=== PATIENT | female | born 1955 | race Caucasian/White ===

== ENCOUNTER 2021-07-15 16:33 | Inpatient (IN) | payer MEDICAID ==
[~2021-07-15] VITALS: Ht 157.5 cm; Wt 78.0 kg
[2021-07-15 16:50] VITALS: BP 135/84
[2021-07-15] MEDS ORDERED: ACETAMINOPHEN EXTRA STRENGTH 500 MG TAB PO ONE (17:00)
--- NOTE | 2021-07-15 17:05 | NUR ---
66 Y/O FEMALE BIB SON FOR C/O DYSURIA, URINARY FREQUENCY. HAS N/V, DENIES DIARRHEA AND ABD X 4DAYS. EMESIS IS NON BLOOD/COFFEE LIKE IN COLOR PER PT. C/O FULLNESS AND PAIN IN THE AREA OF BLADDER. PT REPORTS EPISODES OF FEVER, CHILLS AND AMARO. DENIES CP AT THIS TIME. RESP EVEN AND UNLABORED. AOX 4, ABLE TO MAKE ALL NEEDS KNOWN . PMHX: HTN ALLERGIES: DENIES HOME MEDS: DENIES
[2021-07-15] MEDS ORDERED: ONDANSETRON 4 MG/2 ML VIAL IVP ONE (17:15)
[2021-07-15] MEDS ORDERED: NACL 0.9% 1,000 ML IV SCH (17:15)
--- NOTE | 2021-07-15 18:27 | NUR ---
BLOOD DRAWN AND HANDED TO TECH
[2021-07-15 19:13] LABS: BASOPHILS # (AUTO) 0.1 K/uL (0.00-0.22); BASOPHILS % (AUTO) 0.6 % (0.0-2.0); EOSINOPHILS % (AUTO) 0.2 % (0.0-4.0); HEMATOCRIT 37.3 % (36-48); HEMOGLOBIN 12.5 g/dL (12.0-16.0); LYMPHOCYTES # (AUTO) 1.1 K/uL (2.5-16.5); MEAN CORPUSCULAR HEMOGLOBIN 30 pg (27-31); MEAN CORPUSCULAR HGB CONC 34 g/dL (33-37); MEAN CORPUSCULAR VOLUME 90.8 fL (80-94); MONOCYTES # (AUTO) 1.6 K/uL (0.8-1.0); MONOCYTES % (AUTO) 11.9 % (1.7-9.3); NEUTROPHILS # (AUTO) 10.8 K/uL (1.8-7.7); NEUTROPHILS % (AUTO) 79.3 % (42.2-75.2); PLATELET COUNT (AUTO) 300 K/uL (140-450); RED CELL DISTRIBUTION WIDTH 13.9 % (11.6-13.7); WHITE BLOOD COUNT (AUTO) 13.6 K/uL (4.8-10.8)
[2021-07-15 19:25] LABS: ALBUMIN 3.1 g/dL (3.4-5.0); ANION GAP 14.8 (8-16); CARBON DIOXIDE 21.4 mmol/L (21-32); CREATININE 0.7 mg/dL (0.6-1.3); POTASSIUM 3.2 mmol/L (3.5-5.1); TOTAL BILIRUBIN 1.1 mg/dL (0.0-1.0)
--- NOTE | 2021-07-15 19:25 | NUR ---
Pt report given to BELINDA SAM. Transfer of care at this time.
--- NOTE | 2021-07-15 19:30 | NUR ---
RESTING IN BED WITH FAMILY AT BEDSIDE.
[2021-07-15 19:57] LABS: APPEARANCE,URINE CLOUDY (CLEAR); BILIRUBIN,URINE NEGATIVE (NEGATIVE); BLOOD, URINE 2+ (NEGATIVE); COLOR,URINE YELLOW (YELLOW); LEUKOCYTE ESTERASE ,URINE 1+ (NEGATIVE); NITRITE, URINE POSITIVE (NEGATIVE); UGLUCOSE NEGATIVE (NEGATIVE)
[2021-07-15] MEDS ORDERED: NACL 0.9% 1,000 ML IV ONE (20:30)
[2021-07-15 20:36] LABS: WBC,URINE 60-80 /HPF (0-5)
[2021-07-15] MEDS ORDERED: cefTRIAXone 1,000 MG VIAL ONE (20:40)
[2021-07-15] MEDS ORDERED: LISI-487 PO (21:44)
--- NOTE | 2021-07-15 22:30 | NUR ---
AMBULATED TO BR WITH STEADY GAIT
[2021-07-15] MEDS ORDERED: NACL 0.9% 1,500 ML IV SCH (23:50)
[2021-07-15] MEDS ORDERED: POTASSIUM CHLORIDE 10 MEQ TABER PO PRN (23:50)
[2021-07-15] MEDS ORDERED: ONDANSETRON 4 MG/2 ML VIAL IM/IVP PRN (23:50)
[2021-07-15] MEDS ORDERED: DOCUSATE SODIUM 100 MG GELCAP PO PRN (23:50)
[2021-07-15] MEDS ORDERED: guaiFENesin DM 200/20 MG-10 ML 10 ML UDC PO PRN (23:50)
[2021-07-15] MEDS ORDERED: ZOLPIDEM 5 MG TAB PO PRN (23:50)
[2021-07-15] MEDS ORDERED: HYDROcodone/APAP 7.5/325 MG 1 TAB PO PRN (23:50)
[2021-07-15] MEDS ORDERED: ACETAMINOPHEN 325 MG TAB PO PRN (23:50)
--- NOTE | 2021-07-15 23:50 | NUR ---
Pt discharged from ED at 07/15/21 @ 1845 to be admitted to tele unit under the care of MD Abreu.
[2021-07-15] MEDS ORDERED: POTASSIUM CHLORIDE 10 MEQ TABER PO SCH (23:55)
--- NOTE | 2021-07-16 00:20 | NUR ---
C/O NAUSEA. MEDICATED ORDERED
[2021-07-16 00:34] LABS: CHOL/HDL RATIO 2.6 (1-4.5); FREE T4 (FREE THYROXINE) 1.11 ng/dL (0.76-1.46); MAGNESIUM 1.9 mg/dL (1.8-2.4); PHOSPHORUS 2.6 mg/dL (2.5-4.9); THYROID STIMULATING HORMONE 0.54 uIU/mL (0.34-3.74)
[2021-07-16 00:35] LABS: PROTHROMBIN TIME 10.4 secs (10.8-13.4)
[2021-07-16] MEDS: NACL 0.9% 1,000 ML IV SCH ×3 (01:36→19:58)
[2021-07-16 01:55] LABS: BARBITURATE, URINE NEGATIVE ng/ml (NEG <=200); BENZODIAZEPINE, URINE NEGATIVE ng/mL (NEG <=200); CANNABINOID, URINE NEGATIVE ng/mL (NEG <=50); COCAINE, URINE NEGATIVE ng/mL (NEG <=300); PHENCYCLIDINE SCREEN,URINE NEGATIVE ng/mL (NEG <=25)
[2021-07-16 01:56] LABS: OPIATE, URINE NEGATIVE ng/mL (NEG <=2000)
--- NOTE | 2021-07-16 04:00 | NUR ---
RESTING WITH EYES CLOSED. AWAKENS WITH EASE FOR VS. VOICES NO COMPLAINTS
--- NOTE | 2021-07-16 07:15 | NUR ---
REPORT TO CECY CISNEROS
--- NOTE | 2021-07-16 07:40 | NUR ---
Discharge noted to not be complete. Charge nurse instructed this RN to back chart disposition.
--- NOTE | 2021-07-16 07:41 | NUR ---
Pt awake and alert. A&O x4. GCS 15. VSS. Pt denies any pain at this time. Will continue to monitor.
[2021-07-16] MEDS: PANTOPRAZOLE 40 MG TABEC PO SCH (08:23)
[2021-07-16] MEDS: lisinopriL 20 MG TAB PO SCH (08:24)
[2021-07-16 09:33] LABS: ANION GAP 12.2 (8-16); CARBON DIOXIDE 23.3 mmol/L (21-32); CREATININE 0.7 mg/dL (0.6-1.3); POTASSIUM 3.5 mmol/L (3.5-5.1)
--- NOTE | 2021-07-16 09:42 | NUR ---
Pt ambulated to restroom with steady gait
[2021-07-16 09:43] LABS: BASOPHILS # (AUTO) 0.1 K/uL (0.00-0.22); BASOPHILS % (AUTO) 0.6 % (0.0-2.0); EOSINOPHILS # (AUTO) 0.1 K/uL (0-0.4); EOSINOPHILS % (AUTO) 1.1 % (0.0-4.0); HEMATOCRIT 35.9 % (36-48); HEMOGLOBIN 12.2 g/dL (12.0-16.0); LYMPHOCYTES # (AUTO) 1.4 K/uL (2.5-16.5); LYMPHOCYTES % (AUTO) 14.2 % (20.5-51.1); MEAN CORPUSCULAR HEMOGLOBIN 31 pg (27-31); MEAN CORPUSCULAR HGB CONC 34 g/dL (33-37); MEAN CORPUSCULAR VOLUME 91.9 fL (80-94); NEUTROPHILS # (AUTO) 7.4 K/uL (1.8-7.7); NEUTROPHILS % (AUTO) 74.1 % (42.2-75.2); PLATELET COUNT (AUTO) 315 K/uL (140-450); RED BLOOD CELL COUNT(AUTO) 3.91 MIL/uL (4.20-5.40); WHITE BLOOD COUNT (AUTO) 9.9 K/uL (4.8-10.8)
--- NOTE | 2021-07-16 12:40 | NUR ---
Pt ambulated to restroom with steady gait. Pt given lunch tray.
--- NOTE | 2021-07-16 16:00 | NUR ---
Pt resting in bed on cardiac tele monitor. Pt son at bedside. Will continue to monitor.
--- NOTE | 2021-07-16 17:51 | NUR ---
Pt ambulated to restroom with steady gait.
--- NOTE | 2021-07-16 18:45 | NUR ---
Pt given dinner tray. Pt son at pt bedside. VSS. Pt on cardiac tele monitor.
--- NOTE | 2021-07-16 19:22 | NUR ---
Report and care endorsed to Ladi, RN
--- NOTE | 2021-07-16 20:16 | NUR ---
Patient will be admitted to care of Arvind Abreu MD. Admited to Telemetry. Will go to room 105b. Belongings list completed. Report to Lucia SAM.
--- NOTE | 2021-07-16 20:30 | NUR ---
RECEIVED ADMISSION REPORT FROM FREDERICK , THE RN IN ER. PT ARRIVED VIA GURNEY. CAME FROM HOME. CC: DYSURIA DX: UROSEPSIS, HX: HTN, NO ALLERGIES , FULL CODE, A&O X4, AMBULATORY, ON ROOM AIR, LEFT HAND 20G, SKIN IS INTACT, NS RUNNING 100MLS/HR, PT IS GREEK SPEAKING, SAFETY MEASURES IN PLACE, SON AT BEDSIDE, CALL LIGHT WITHIN REACH, ADMISSION VITALS TAKEN, PT STABLE AT THIS TIME, WILL CONTINUE TO MONITOR.
[2021-07-16] MEDS ORDERED: cefTRIAXone 1,000 MG VIAL ONE (21:39)
--- NOTE | 2021-07-16 21:52 | NUR ---
GAVE PT SCHEDULED ABX. EDUCATED PT AND PT VERBALIZED UNDERSTANDING. PT DENIES ANY PAIN, STABLE AT THIS GIVEN MOMENT, WILL CONTINUE TO MONITOR.
--- NOTE | 2021-07-17 | NUR ---
PATIENT IS ASLEEP, NO SIGNS OF DISTRESS, PT STABLE AT THIS MOMENT, WILL CONTINUE TO MONITOR.
--- NOTE | 2021-07-17 02:04 | NUR ---
PT IS KEPT COMFORTABLE, NO SIGNS OF DISTRESS, PT IS ASLEEP, WILL CONTINUE TO MONITOR
--- NOTE | 2021-07-17 03:15 | NUR ---
PT IS IN BED ASLEEP, KEPT COMFORTABLE, NO SIGNS OF DISTRESS, STABLE AT THIS MOMENT, WILL CONTINUE TO MONITOR
[2021-07-17 04:00] VITALS: BP 140/83
[2021-07-17] MEDS: NACL 0.9% 1,000 ML IV SCH (05:50)
[2021-07-17 06:23] LABS: BASOPHILS # (AUTO) 0.1 K/uL (0.00-0.22); EOSINOPHILS # (AUTO) 0.2 K/uL (0-0.4); EOSINOPHILS % (AUTO) 2.4 % (0.0-4.0); HEMATOCRIT 33.5 % (36-48); HEMOGLOBIN 11.5 g/dL (12.0-16.0); LYMPHOCYTES # (AUTO) 1.4 K/uL (2.5-16.5); LYMPHOCYTES % (AUTO) 20.1 % (20.5-51.1); MEAN CORPUSCULAR HEMOGLOBIN 31 pg (27-31); MEAN CORPUSCULAR HGB CONC 34 g/dL (33-37); MEAN CORPUSCULAR VOLUME 90.9 fL (80-94); MONOCYTES # (AUTO) 1.1 K/uL (0.8-1.0); MONOCYTES % (AUTO) 15.4 % (1.7-9.3); NEUTROPHILS # (AUTO) 4.2 K/uL (1.8-7.7); NEUTROPHILS % (AUTO) 61.1 % (42.2-75.2); PLATELET COUNT (AUTO) 313 K/uL (140-450); RED BLOOD CELL COUNT(AUTO) 3.68 MIL/uL (4.20-5.40); WHITE BLOOD COUNT (AUTO) 6.9 K/uL (4.8-10.8)
--- NOTE | 2021-07-17 06:38 | NUR ---
PT WANTED A SNACK, GAVE JELLO, OTHERWISE KEPT COMFORTABLE, DENIES PAIN, PT STABLE AT THIS MOMENT, WILL CONTINUE TO MONITOR.
[2021-07-17 06:54] LABS: ANION GAP 11.8 (8-16); CARBON DIOXIDE 23.9 mmol/L (21-32); CREATININE 0.8 mg/dL (0.6-1.3); POTASSIUM 3.7 mmol/L (3.5-5.1)
--- NOTE | 2021-07-17 07:15 | NUR ---
PASSED BEDSIDE REPORT TO AM SHIFT RN, PT STABLE.
--- NOTE | 2021-07-17 07:20 | NUR ---
RECEIVED PT AAOX4. NO SOB NOTED. NO C/O PAIN AT THIS TIME. IV TO LT WRIST PATENT AND INTACT. CHEST, CLEAR. ABDOMEN SOFT, BOWEL SOUNDS PRESENT. NO EDEMA NOTED. INSTRUCTED PT TO CALL FOR ASSISTANCE, CALL LIGHT WITHIN REACH, VERBALIZED UNDERSTANDING.
[2021-07-17 08:00] VITALS: BP 116/72
[2021-07-17 08:07] LABS: T4 (THYROXINE) 7.5 ug/dL (4.5-12.0)
--- NOTE | 2021-07-17 09:23 | NUR ---
PATIENT HAS BEEN SCREENED AND CATEGORIZED MODERATE NUTRITION RISK. PATIENT WILL BE SEEN WITHIN 3-5 DAYS OF ADMISSION. 07/18/21 07/20/[address] [facility] [address]
[2021-07-17] MEDS: PANTOPRAZOLE 40 MG TABEC PO SCH (09:36)
[2021-07-17] MEDS: lisinopriL 20 MG TAB PO SCH (09:36)
[2021-07-17] MEDS ORDERED: CEPH-588 PO (11:06)
[2021-07-17 11:45] VITALS: BP 141/65
--- NOTE | 2021-07-17 13:30 | NUR ---
DISCHARGE INSTRUCTIONS GIVEN TO PT AND SON AT THE BEDSIDE. SON SPEAKS GOOD LUXEMBOURGER, BOTH VERBALIZED UNDERSTANDING. BOTH ARE AWARE THE PT'S PRESCRIPTIONS WERE SENT TO PT'S PREFERRED PHARMACY. ARM BANDS AND IV REMOVED, CANNULA TIP INTACT.
--- NOTE | 2021-07-17 13:45 | NUR ---
ESCORTED PT TO THE FRONT LOBBY, AMBULATORY. NO COMPLAINTS MADE. PT IS D/C HOME IN STABLE CONDITION WITH SON.
== END 2021-07-17 13:45 | disposition home or self-care (01) | DRG 720 ==
LOC: MED 16:33 → MTU 23:48 → MED 23:50 → MTU 07-16 18:27
PROVIDERS: ADMIT Family Medicine; ATTEND Family Medicine
DX: A41.9 Sepsis, unspecified organism (principal); G93.41 Metabolic encephalopathy; E44.1 Mild protein-calorie malnutrition; E86.0 Dehydration; I10 Essential (primary) hypertension; N39.0 Urinary tract infection, site not specified; E87.6 Hypokalemia; E78.5 Hyperlipidemia, unspecified; Z68.31 Body mass index [BMI] 31.0-31.9, adult
CPT/HCPCS: 36415; 71045; 80048; 80053; 80305; 81001; 82150; 83036; 83605; 83690; 83735; 83880; 84100; 84436; 84439; 84443; 84479; 84484; 85025; 85610; 85730; 87040; 87081; 87086; 96361; 96365; 96375; 99285; J0696; J2405; J7060; Q0092